=== PATIENT | male | born 1950 | race Caucasian/White ===

== ENCOUNTER → 2023-12-20 07:28 | Outpatient (REF) | payer BC, SELFPAY ==
[2023-12-20 09:09] LABS: Glycohemoglobin (HgbA1c) 7.4 % (4.0-5.6)
[2023-12-20 09:46] LABS: ALT (SGPT) 28 U/L (0-50); AST (SGOT) 33 U/L (17-59); Albumin 4.2 g/dl (3.5-5.0); Alkaline Phosphatase 46 U/L (38-126); Blood Urea Nitrogen 31 mg/dl (9-20); Calcium 9.3 mg/dl (8.4-10.2); Carbon Dioxide 28 mmol/L (22-30); Chloride 107 mmol/L (98-107); Glucose 150 mg/dl (70-99); Potassium 4.8 mmol/L (3.5-5.1); Sodium 140 mmol/L (135-145); Total Bilirubin 0.4 mg/dl (0.2-1.3); Total Protein 7.3 g/dl (6.3-8.2)
== END ==
LOC: REG 07:28
PROVIDERS: ATTENDING PHYSICIAN Internal Medicine Endocrinology, Diabetes & Metabolism; FAMILY PHYSICIAN Specialist; OTHER PHYSICIAN Family Medicine; REFERRING PHYSICIAN Internal Medicine Cardiovascular Disease
DX: E11.21 Type 2 diabetes mellitus with diabetic nephropathy (principal)
CPT/HCPCS: 36415; 80053; 83036

== ENCOUNTER → 2024-03-20 06:38 | Outpatient (REF) | payer BC, SELFPAY ==
[2024-03-20 07:26] LABS: % Basophils 0.7 % (0-2); % Eosinophils 2.6 % (0-6); % Immature Granulocytes 0.5 % (0-0.5); % Lymphocytes 24.8 % (20.5-51.1); % Monocytes 8.3 % (1.7-9.3); % Neutrophils 63.1 % (42.2-75.2); Absolute Eosinophils 0.2 10^3/uL (0-0.7); Absolute Lymphocytes 1.5 10^3/uL (1.2-3.4); Absolute Monocytes 0.5 10^3/uL (0.1-0.6); Absolute Neutrophils 3.8 10^3/uL (1.4-6.5); Hematocrit 42.1 % (39.0-52.0); Hemoglobin 13.8 g/dL (13.0-18.0); Mean Corp Hgb Conc. 32.8 g/dL (33.0-37.0); Mean Corpuscular Hgb 27.3 pg (27.0-31.0); Mean Corpuscular Volume 83.2 fL (80.0-94.0); Nucleated Red Blood Cells % 0 % (-); Platelet Count 202 10^3/uL (130-400); Red Blood Cell Count 5.06 10^6/uL (4.70-6.10); Red Cell Dist. Width 15.3 % (11.5-14.5); White Blood Cell Count 6.1 10^3/uL (4.8-10.8)
[2024-03-20 07:48] LABS: NT-proBNP 285 pg/ml
[2024-03-20 07:52] LABS: ALT (SGPT) 30 U/L (0-50); AST (SGOT) 39 U/L (17-59); Albumin 4.3 g/dl (3.5-5.0); Alkaline Phosphatase 40 U/L (38-126); Blood Urea Nitrogen 29 mg/dl (9-20); Calcium 9.5 mg/dl (8.4-10.2); Carbon Dioxide 27 mmol/L (22-30); Chloride 105 mmol/L (98-107); Glucose 167 mg/dl (70-99); HDL Cholesterol 52 mg/dl; LDL Cholesterol, Calculated 73 mg/dl; Potassium 4.5 mmol/L (3.5-5.1); Sodium 140 mmol/L (135-145); Total Bilirubin 0.6 mg/dl (0.2-1.3); Total Cholesterol 156 mg/dl (50-199); Total Protein 7.2 g/dl (6.3-8.2); Triglyceride 159 mg/dl (10-149); Very Low Density Lipoprotein 31 mg/dl (0-30); eGFR 49.16
[2024-03-20 07:58] LABS: Microalbumin, Random Urine 14.2 mg/dl (0.6-1.7); Microalbumin/creatinine Ratio 175.1 mg/g
[2024-03-20 11:58] LABS: Glycohemoglobin (HgbA1c) 7.4 % (4.0-5.6)
== END ==
LOC: REG 06:38
PROVIDERS: ATTENDING PHYSICIAN Internal Medicine Cardiovascular Disease; FAMILY PHYSICIAN Family Medicine; OTHER PHYSICIAN Specialist; REFERRING PHYSICIAN Internal Medicine Endocrinology, Diabetes & Metabolism
DX: I25.10 Atherosclerotic heart disease of native coronary artery without angina pectoris (principal); E11.65 Type 2 diabetes mellitus with hyperglycemia; I10 Essential (primary) hypertension; E78.2 Mixed hyperlipidemia; Z79.4 Long term (current) use of insulin; E66.01 Morbid (severe) obesity due to excess calories; N18.32 Chronic kidney disease, stage 3b; E11.21 Type 2 diabetes mellitus with diabetic nephropathy; I50.32 Chronic diastolic (congestive) heart failure
CPT/HCPCS: 36415; 80053; 80061; 82043; 82570; 83036; 83880; 85025

== ENCOUNTER → 2024-06-11 07:32 | Outpatient (REF) | payer BC, SELFPAY ==
[2024-06-11 09:04] LABS: ALT (SGPT) 33 U/L (0-50); AST (SGOT) 37 U/L (17-59); Albumin 4.2 g/dl (3.5-5.0); Alkaline Phosphatase 33 U/L (38-126); Blood Urea Nitrogen 32 mg/dl (9-20); Calcium 9.4 mg/dl (8.4-10.2); Carbon Dioxide 25 mmol/L (22-30); Chloride 107 mmol/L (98-107); Glucose 153 mg/dl (70-99); HDL Cholesterol 54 mg/dl; LDL Cholesterol, Calculated 61 mg/dl; Sodium 145 mmol/L (135-145); Total Bilirubin 0.4 mg/dl (0.2-1.3); Total Cholesterol 149 mg/dl (50-199); Total Protein 7.3 g/dl (6.3-8.2); Triglyceride 172 mg/dl (10-149); Very Low Density Lipoprotein 34 mg/dl (0-30)
[2024-06-11 09:17] LABS: Microalbumin, Random Urine 26.2 mg/dl (0.6-1.7); Microalbumin/creatinine Ratio 198.3 mg/g
[2024-06-11 09:34] LABS: Glycohemoglobin (HgbA1c) 6.8 % (4.0-5.6)
== END ==
LOC: REG 07:32
PROVIDERS: ATTENDING PHYSICIAN Internal Medicine Endocrinology, Diabetes & Metabolism; FAMILY PHYSICIAN Family Medicine; OTHER PHYSICIAN Specialist; REFERRING PHYSICIAN Internal Medicine Cardiovascular Disease
DX: E11.21 Type 2 diabetes mellitus with diabetic nephropathy (principal)
CPT/HCPCS: 36415; 80053; 80061; 82043; 82570; 83036